=== PATIENT | female | born 1995 | race African-American/Black ===

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

== ENCOUNTER 2017-05-28 13:36 | Emergency (ER) | payer OTHER ==
[~2017-05-28] VITALS: Ht 170.2 cm; Wt 65.0 kg
[~2017-05-28 13:36] MED LIST: BIRTH CONTROL; CEFTIN 250250 MG/TAB PO
[2017-05-28 13:39] VITALS: BP 125/87; TEMP 98.6
[2017-05-28] MEDS ORDERED: AMOXICILLIN 50500 MG PO (14:33)
[2017-05-28 14:37] VITALS: PULSE 102
== END 2017-05-28 14:38 | disposition home or self-care (01) ==
LOC: COL.ER 13:36
DX: J02.0 Streptococcal pharyngitis (principal)

== ENCOUNTER 2017-08-12 14:10 | Emergency (ER) | payer OTHER ==
[~2017-08-12] VITALS: Ht 170.2 cm; Wt 68.6 kg
[~2017-08-12 14:10] MED LIST changes: +AMOXICILLIN 50500 MG PO
[2017-08-12 14:23] VITALS: BP 105/65; PULSE 100
[2017-08-12] MEDS ORDERED: TRINESSA LO TA1 EACH PO (14:47)
[2017-08-12 15:13] VITALS: TEMP 98.4
[2017-08-12] MEDS ORDERED: ILOTYCIN5 MG/GM OP (15:36)
== END 2017-08-12 15:45 | disposition home or self-care (01) ==
LOC: COL.ER 14:10
DX: H10.9 Unspecified conjunctivitis (principal)

== ENCOUNTER 2018-07-22 16:34 | Emergency (ER) | payer OTHER ==
[~2018-07-22] VITALS: Ht 167.6 cm; Wt 69.5 kg
[~2018-07-22 16:34] MED LIST changes: +ILOTYCIN5 MG/GM OP; +TRINESSA LO TA1 EACH PO
[2018-07-22 16:55] VITALS: BP 122/79; TEMP 98.9
[2018-07-22 17:33] LABS: COLLECTION METHOD CLEAN CATCH
[2018-07-22 17:37] LABS: BASO % 0.3 % (0.0-2.0); GRAN # 7.7 (1.4-6.5); GRAN % 82.7 % (42.2-75.2); HEMATOCRIT 42.1 % (35.0-45.0); HEMOGLOBIN 14.2 g/dl (12.0-15.0); LYMPH # 1.3 (1.2-3.4); LYMPH % 13.6 % (20.0-51.0); MEAN CELL VOLUME 83 fl (80.0-95.0); MEAN CORPUSCULAR HEMOGLOBIN 28 pg (26.0-32.0); MEAN CORPUSCULAR HGB CONC 34 g/dl (33.0-37.0); MEAN PLATELET VOLUME 9.8 fl (7.4-10.4); MONO # 0.3 (0.1-0.6); MONO % 3.3 % (1.7-9.3); PLATELET COUNT 285 K/mm3 (130-400); RED BLOOD COUNT 5.08 M/mm3 (4.10-5.30); REDCELL DISTRIBUTION WIDTH-CV 12.9 % (11.5-14.5)
[2018-07-22 17:40] LABS: MUCOUS Present /lpf; PH 8 (5-8); URINE APPEARANCE Clear; URINE BACTERIA Rare /hpf; URINE BILIRUBIN Negative (NEGATIVE); URINE BLOOD Negative (NEGATIVE); URINE COLOR Yellow; URINE GLUCOSE Negative (NEGATIVE); URINE KETONE Negative (NEGATIVE); URINE LEUKOCYTE ESTERASE 1+ (NEGATIVE); URINE NITRATE Negative (NEGATIVE); URINE PROTEIN(semi-quant) 1+ (NEGATIVE); URINE RBC 0-2 /hpf; URINE UROBILINOGEN Negative (NEGATIVE); URINE WBC 0-2 /hpf
[2018-07-22 17:44] LABS: ALBUMIN 4.2 gm/dL (3.5-5.0); BILIRUBIN,TOTAL 0.4 mg/dL (0.0-1.0); CALCIUM 9.4 mg/dL (8.4-10.2); CREATININE, serum 0.63 (0.52-1.25); POTASSIUM 3.8 mmol/L (3.4-5.0); TOTAL PROTEIN 8.4 gm/dL (6.4-8.2)
[2018-07-22] MEDS ORDERED: MACROBID 1100 MG/CAP PO (18:16)
[2018-07-22] MEDS ORDERED: ZOFRAN ODT4 MG PO (18:16)
[2018-07-22 18:45] VITALS: PULSE 100
== END 2018-07-22 18:45 | disposition home or self-care (01) ==
LOC: COL.ER 16:34
PROVIDERS: Physician Assistant
DX: K52.9 Noninfective gastroenteritis and colitis, unspecified (principal)
CPT/HCPCS: J2405; J7030

== ENCOUNTER 2021-02-08 11:02 | Emergency (ER) | payer OTHER ==
[~2021-02-08] VITALS: Ht 170.2 cm; Wt 86.4 kg
[~2021-02-08 11:02] MED LIST changes: +MACROBID 1100 MG/CAP PO; +ZOFRAN ODT4 MG PO
[2021-02-08 11:12] VITALS: TEMP 98
[2021-02-08 11:29] LABS: COLLECTION METHOD CLEAN CATCH
[2021-02-08 11:40] LABS: BASO % 0.3 % (0.0-2.0); EOS % 0.1 % (0-4.0); GRAN % 74.1 % (42.2-75.2); HEMATOCRIT 39.8 % (37.0-47.0); HEMOGLOBIN 13.3 g/dl (12.5-16.0); LYMPH % 21.6 % (20.0-51.0); MEAN CELL VOLUME 81 fl (80.0-100.0); MEAN CORPUSCULAR HEMOGLOBIN 27 pg (27.0-31.0); MEAN CORPUSCULAR HGB CONC 33 g/dl (33.0-37.0); MEAN PLATELET VOLUME 9.8 fl (7.4-10.4); MONO # 0.4 K/mm3 (0.1-0.6); MONO % 3.7 % (1.7-9.3); PLATELET COUNT 274 K/mm3 (130-400); REDCELL DISTRIBUTION WIDTH-CV 13.4 % (11.5-14.5)
[2021-02-08 11:42] LABS: AMORPHOUS CRYSTAL Present /uL; MUCOUS Present /lpf; PH 5 (5-8); URINE APPEARANCE Turbid; URINE BACTERIA None Seen /hpf; URINE BILIRUBIN Negative (NEGATIVE); URINE BLOOD Negative (NEGATIVE); URINE COLOR Amber; URINE GLUCOSE Negative (NEGATIVE); URINE KETONE Trace (NEGATIVE); URINE LEUKOCYTE ESTERASE Negative (NEGATIVE); URINE NITRATE Negative (NEGATIVE); URINE PROTEIN(semi-quant) 1+ (NEGATIVE); URINE UROBILINOGEN Negative (NEGATIVE)
[2021-02-08 11:54] LABS: ALBUMIN 3.3 gm/dL (3.5-5.0); BILIRUBIN,TOTAL 0.3 mg/dL (0.2-1.2); CALCIUM 9.6 mg/dL (8.4-10.2); CREATININE, serum 0.77 mg/dL (0.57-1.11); POTASSIUM 3.6 mmol/L (3.5-4.5); TOTAL PROTEIN 7.8 gm/dL (6.2-8.1)
[2021-02-08] MEDS ORDERED: ZOFRAN ODT4 MG PO (11:55)
[2021-02-08] MEDS ORDERED: CEFTIN500 MG PO (11:55)
[2021-02-08 12:46] VITALS: BP 134/78; PULSE 96
== END 2021-02-08 12:54 | disposition home or self-care (01) ==
LOC: COL.ER 11:02
PROVIDERS: Physician Assistant
DX: R51.9 Headache, unspecified (principal); N39.0 Urinary tract infection, site not specified
CPT/HCPCS: J2405; J7030